=== PATIENT | male | born 1990 | race Caucasian/White ===

== ENCOUNTER 2016-07-18 10:20 | Emergency (ER) | payer BC ==
[2016-07-18 10:27] VITALS: BP 130/74; PULSE 87; RESP 16; TEMP 97.9
--- NOTE | 2016-07-18 11:01 | ED ---
Skin/Abscess/FB HPI - General Chief complaint: Skin/Abscess/Foreign Body Stated complaint: cyst Source: patient Mode of arrival: ambulatory Limitations: no limitations - History of Present Illness Initial comments: Patient is a 26-year-old male who presents for evaluation for Pilondial cyst. Past medical history as below. Patient stated that he started getting these about a year ago. It was drained in June. He was also drained a few weeks ago. He was actively draining and then eventually stopped. He was prescribed an antibiotic, Bactrim, which she did not take. He's been having increased pain. Yesterday the pain was about 7 out of 10. It was more swollen yesterday. It feels somewhat improved today. No active drainage. Less swollen. Less painful. He spoke with his primary care physician or recommended coming to the ER for evaluation for possible abscess. It is higher up and not by his rectum. He is having no issues with going to the bathroom. No blood in the stool. No mucus in his stool. Regular bowel movements. Denies any systemic signs of infection. Denies fever, chills, headache, changes in vision, URI symptoms, shortness breath, cough, chest pain, nausea, vomiting, diarrhea, change in appetite, pain or burning with urination. - Related Data Home Medications Medication Instructions Recorded Confirmed Sertraline [Zoloft] 50 mg PO DAILY 07/18/16 07/18/16 Sulfamethox-Tmp 800-160Mg [Bactrim 1 tab PO Q12HR 07/18/16 07/18/16 DS 800-160 mg] Allergies Allergy/AdvReac Type Severity Reaction Status Date / Time No Known Allergies Allergy Verified 07/18/16 10:39 Review of Systems ROS Statement: Those systems with pertinent positive or pertinent negative responses have been documented in the HPI. ROS Other: All systems not noted in ROS Statement are negative. Past Medical History Additional Past Medical History / Comment(s): ear infection piloniadal cyst History of Any Multi-Drug Resistant Organisms: None Reported Past Surgical History: No Surgical Hx Reported Past Psychological History: Anxiety Smoking Status: Current every day smoker Past Alcohol Use History: Occasional Past Drug Use History: None Reported General Exam Limitations: no limitations General appearance: alert, in no apparent distress, other (Nontoxic appearing) Head exam: Present: atraumatic, normocephalic, normal inspection Eye exam: Present: normal appearance, PERRL, EOMI. Absent: scleral icterus, conjunctival injection, periorbital swelling ENT exam: Present: normal exam, mucous membranes moist Neck exam: Present: normal inspection. Absent: tenderness, meningismus, lymphadenopathy Respiratory exam: Present: normal lung sounds bilaterally. Absent: respiratory distress, wheezes, rales, rhonchi, stridor Cardiovascular Exam: Present: regular rate, normal rhythm, normal heart sounds. Absent: systolic murmur, diastolic murmur, rubs, gallop, clicks GI/Abdominal exam: Present: soft, normal bowel sounds. Absent: distended, tenderness, guarding, rebound, rigid Rectal exam: Present: other (There is a 2 cm x 1 cm oval shaped Plon deal cyst at the top of the gluteal cleft. No perirectal involvement. No overlying cellulitis. No active drainage.) Extremities exam: Present: normal inspection, full ROM, normal capillary refill. Absent: tenderness, pedal edema, joint swelling, calf tenderness Back exam: Present: normal inspection Neurological exam: Present: alert, oriented X3, CN II-XII intact Psychiatric exam: Present: normal affect, normal mood Skin exam: Present: warm, dry, intact, normal color. Absent: rash Course Vital Signs 07/18/16 10:24 Temperature 97.9 F Pulse Rate 87 Respiratory 16 Rate Blood Pressure 130/74 O2 Sat by Pulse 99 Oximetry Procedures - Incision & Drainage Consent Obtained: verbal consent Time Out Performed?: Yes Site: buttock Anesthetic Used: lidocaine 1% I&D Cleaning Method: Alcohol Wipe Sterile Field Used?: Yes Needle Aspiration Performed?: Yes (No purulent drainage) Irrigation Performed?: No I&D Drainage Obtained: Other (No purulent drainage. No fluid withdrawn.) Culture Obtained?: No Complications: other (None) Patient Tolerated Procedure: well, no complications Medical Decision Making - Medical Decision Making 1100: Patient presents for evaluation for pilondial cyst. Has been drained twice in the past. Most recently a few weeks ago. No overlying cellulitis. I numbed the area with lidocaine and took an 18 mL syringe and with true inside the Pilondial cyst. There is no purulent drainage. I discussed this with the patient. Because there is no evidence of an abscess, will not candida the Pilondial cyst. The tissue is firm and indurated. Encouraged completing the course of Bactrim which his primary care physician prescribes. Recommended sitz baths. Tylenol/Motrin for pain control. Will refer to a general surgeon for further evaluation. I discussed signs and symptoms on when to return to emergency department for further evaluation. He voiced understanding and is comfortable with above plan. Work note provided. Disposition Clinical Impression: Pilonidal cyst Disposition: HOME SELF-CARE Condition: Good Instructions: Pilonidal Cyst (ED) Referrals: Bright Decker MD [Primary Care Provider] - 1-2 days Mona Pagan DO [Doctor of Osteopathic Medicine] - 1-2 days
== END 2016-07-18 11:07 | disposition home or self-care (01) ==
LOC: EC 10:20
DX: L05.91 Pilonidal cyst without abscess (principal); F41.9 Anxiety disorder, unspecified; F17.200 Nicotine dependence, unspecified, uncomplicated; Z79.899 Other long term (current) drug therapy; Z86.19 Personal history of other infectious and parasitic diseases
CPT/HCPCS: 10080; 99282

== ENCOUNTER 2018-05-04 07:06 | Day surgery (SDC) | payer BC ==
[2018-04-29 11:28] VITALS: BMI 27.1
[~2018-05-04 07:06] MED LIST: DEXAMETHASONE SOD PHOSPHATE 10 MG/ML 1 ML VIAL IV ONE; HEPARIN SODIUM,PORCINE 5,000 UNIT/ML 1 ML VIAL SQ ONE; HYDROmorphone 0.5 MG/0.5 ML SYRINGE IVP PRN; LACTATED RINGERS 1,000 ML IV SCH; LIDOCAINE 1% 20 ML VIAL (10MG/ML) FOR IV START INTRADERMA PRN; ONDANSETRON 4 MG/2 ML VIAL IVP ONE; SCOPOLAMINE 1.5MG/72HR PATCH TRANSDERM ONE; metroNIDAZOLE-NS PMX 500 MG in SALINE 1 100ML.BAG IVPB ONE
[2018-05-04 07:21] VITALS: TEMP 98.7
[2018-05-04] MEDS ORDERED: MIDAZOLAM 2 MG/2 ML VIAL IV ONE (07:43)
[2018-05-04] MEDS: ceFAZolin IN SWFI 2 GM/20 ML SYRINGE IVP ONE ×2 (08:00→08:25)
[2018-05-04] MEDS ORDERED: BUPIVACAIN-EPI 0.25%-1:200,000 30 ML VIAL SQ ONE ×3 (08:00→08:25)
[2018-05-04] MEDS ORDERED: PROPOFOL 10 MG/ML 20 ML VIAL IV ONE (08:04)
[2018-05-04] MEDS ORDERED: KETOROLAC 30 MG/ML 1 ML VIAL ONE (08:04)
[2018-05-04] MEDS ORDERED: MIDAZOLAM 2 MG/2 ML VIAL ONE (08:04)
[2018-05-04] MEDS ORDERED: GLYCOPYRROLATE 0.2 MG/ML 2 ML VIAL ONE (08:04)
[2018-05-04] MEDS ORDERED: fentaNYL (PF) 50 MCG/ML 2 ML AMP ONE (08:04)
[2018-05-04] MEDS ORDERED: HYDROcodone/APAP 7.5-325MG 1 EACH TAB PO ONE (09:48)
[2018-05-04 10:02] VITALS: BP 115/73; PULSE 73; RESP 16
--- NOTE | 2018-05-04 18:29 | P.GSHP ---
History of Present Illness H&P Date: 05/04/18 Chief Complaint: Chronic pilonidal cyst This a 27-year-old male who has a chronic history of pilonidal cyst with abscess. Patient presents today for excision of pilonidal cyst. Patient is mother are aware that the wound was packed postoperatively. Past Medical History Additional Past Medical History / Comment(s): pilonidal cyst History of Any Multi-Drug Resistant Organisms: None Reported Past Surgical History: No Surgical Hx Reported Past Anesthesia/Blood Transfusion Reactions: No Reported Reaction Smoking Status: Current every day smoker - Past Family History Mother Family Medical History: No Reported History Medications and Allergies Home Medications Medication Instructions Recorded Confirmed Type Multivitamins, Thera [Multivitamin 1 tab PO DAILY 04/29/18 05/04/18 History (formulary)] Docusate [Colace] 100 mg PO BID #20 capsule 05/04/18 Rx HYDROcodone/APAP 7.5-325MG [[place] 1 tab PO Q4H PRN 3 Days #18 tab 05/04/18 Rx 7.5-325] Allergies Allergy/AdvReac Type Severity Reaction Status Date / Time No Known Allergies Allergy Verified 05/04/18 07:20 Surgical - Exam Vital Signs Temp Pulse Resp BP Pulse Ox 98.7 F 88 16 133/79 98 05/04/18 07:16 05/04/18 07:16 05/04/18 07:16 05/04/18 07:16 05/04/18 07:16 - General well developed, well nourished, no distress - Eyes PERRL - ENT normal pinna - Neck no masses - Respiratory normal expansion - Abdomen Abdomen: soft, non tender - Integumentary Pilonidal cyst. Patient is evidence of a chronic pilonidal cyst with abscess. Results - Labs Microbiology - Last 24 Hours (Table) 05/04/18 02:44 Wound Culture - Preliminary Cyst 05/04/18 02:44 Anaerobic Culture - Preliminary Cyst Assessment and Plan Assessment: Pilonidal cyst. We'll perform excision. Patient's wound will be packed postoperatively.
--- NOTE | 2018-05-04 18:31 | P.OP ---
Date of Procedure: 05/04/18 Preoperative Diagnosis: Pilonidal cyst with abscess Postoperative Diagnosis: Pilonidal cyst with abscess Procedure(s) Performed: Excision of pilonidal cyst Anesthesia: MAC Surgeon: Van Garcia Estimated Blood Loss (ml): 10 Pathology: other (Pilonidal cyst) Condition: stable Disposition: PACU Description of Procedure: The patient's placed on the operative table in the prone position. He received IV sedation. His pilonidal cyst was prepped and draped usual sterile fashion. Elliptical skin incision was made and then using left cautery the pylorus cyst was excised. There was an abscess cavity entered. This was excised with the cyst. The wound was then packed with wet-to-dry Kerlix dressing. Patient top procedure well and was sent to recovery room stable condition.
== END 2018-05-04 10:59 | disposition home or self-care (01) ==
LOC: OR 07:06
PROVIDERS: ATTEND Surgery
DX: L05.91 Pilonidal cyst without abscess (principal); F17.200 Nicotine dependence, unspecified, uncomplicated; Z79.899 Other long term (current) drug therapy
CPT/HCPCS: 88304; 87070; 87205; 87075; 11770; J2250; J1644; J1100; J2405; J3010; J1885; J2704; J0690

== ENCOUNTER 2023-05-09 13:54 | Emergency (ER) | payer SELFPAY ==
--- NOTE | 2023-05-09 14:16 | ED ---
ENT HPI - General Chief complaint: Dental/Oral Stated complaint: dental infection Time Seen by Provider: 05/09/23 14:06 Source: patient, RN notes reviewed Mode of arrival: ambulatory Limitations: no limitations - History of Present Illness Initial comments: This is a 32-year-old male presents emergency department for a dental infection. States he started to develop right-sided facial swelling 3-4 days ago. This is becoming increasingly painful as well. Denies any fever/chills. He is not taking anything for management of his symptoms. He is concerned about the infection spreading. MD complaint: tooth pain - Related Data Home Medications Medication Instructions Recorded Confirmed Multivitamins, Thera [Multivitamin 1 tab PO DAILY 04/29/18 06/25/18 (formulary)] Ibuprofen [Motrin] 800 mg PO TID 05/21/18 06/25/18 Previous Rx's Medication Instructions Recorded Acetaminophen-Codeine 300-30mg 1 tab PO Q6H PRN 3 Days #12 tablet 05/09/23 [Tylenol w/codeine #3] Amoxic-Pot Clav 875-125Mg 1 tab PO Q12HR 10 Days #20 tab 05/09/23 [Augmentin 875-125] Ibuprofen [Motrin] 800 mg PO Q8H PRN #30 tab 05/09/23 Allergies Allergy/AdvReac Type Severity Reaction Status Date / Time No Known Allergies Allergy Verified 05/09/23 14:34 Review of Systems ROS Statement: Those systems with pertinent positive or pertinent negative responses have been documented in the HPI. ROS Other: All systems not noted in ROS Statement are negative. Past Medical History Additional Past Medical History / Comment(s): pilonidal cyst History of Any Multi-Drug Resistant Organisms: None Reported Past Surgical History: No Surgical Hx Reported Additional Past Surgical History / Comment(s): excision pilonidal cyst, reduction of arm fracture under anaesthesia Past Anesthesia/Blood Transfusion Reactions: No Reported Reaction Past Psychological History: Anxiety Past Alcohol Use History: Occasional Additional Past Alcohol Use History / Comment(s): smoker for 7 years "couple a day" Past Drug Use History: None Reported - Past Family History Mother Family Medical History: No Reported History Father Family Medical History: No Reported History General Exam Limitations: no limitations General appearance: alert, in no apparent distress Head exam: Present: atraumatic, normocephalic, normal inspection ENT exam: Present: other (Right sided facial swelling along the upper jaw line consistent with a dental abscess) Respiratory exam: Present: normal lung sounds bilaterally. Absent: respiratory distress, wheezes, rales, rhonchi, stridor Cardiovascular Exam: Present: regular rate, normal rhythm, normal heart sounds. Absent: systolic murmur, diastolic murmur, rubs, gallop, clicks Neurological exam: Present: alert, oriented X3, CN II-XII intact Psychiatric exam: Present: normal affect, normal mood Skin exam: Present: warm, dry, intact, normal color. Absent: rash Course Vital Signs 05/09/23 14:31 Temperature 98.4 F Pulse Rate 73 Respiratory 18 Rate Blood Pressure 126/89 O2 Sat by Pulse 98 Oximetry Medical Decision Making - Medical Decision Making This is a 32 year old male who presents to the emergency department for a dental infection. Was pt. sent in by a medical professional or institution? @ -No Did you speak to anyone other than the patient for history? @ -No Did you review nursing and triage notes? @ -Yes, and I agree, it is accurate with regards to the patient's symptoms. Were old charts reviewed? @ -No Differential Diagnosis? @ -Differential Dental Pain: Dental abscess, chipped tooth, dental carries, gaviota's angina, trigeminal neuralgia, this is not meant to be an all-inclusive list. EKG interpreted by me (3pts min.)? @ -Not obtained X-rays interpreted by me (1pt min.)? @ -Not obtained CT interpreted by me (1pt min.)? @ -Not obtained U/S interpreted by me (1pt. min.)? @ -Not obtained What testing was considered but not performed? (CT, X-rays, U/S, labs)? Why? @ -None What meds were considered but not given? Why? @ -None Did you discuss the management of the patient with other professionals? @ -No Did you reconcile home meds? @ -No Was smoking cessation discussed for >3mins.? @ -I discussed smoking cessation for greater than 3 minutes. The risk of smoking were discussed with the patient including but not limited to risks of cancer, stroke, coronary artery disease and COPD. Also discussed with patient were multiple methods of quitting smoking. Lastly we discussed the financial cost of smoking. Was critical care preformed (if so, how long)? @ -No Were there social determinants of health that impacted care today? How? (Homelessness, low income, unemployed, alcoholism, drug addiction, transportation, low edu. Level, literacy, decrease access to med. care, longterm, rehab)? @ -No Was there de-escalation of care discussed even if they declined? (Discuss DNR or withdrawal of care, Hospice)? @ -No What co-morbidities impacted this encounter? (DM, HTN, Smoking, COPD, CAD, Cancer, CVA, Hep., AIDS, mental health diagnosis, sleep apnea, morbid obesity)? @ -Smoking Was patient admitted / discharged? @ -Discharged. Physical examination consistent with developing dental abscess. Rx for Augmentin and Ibuprofen provided with dosing instructions reviewed. Advised taking this with Tylenol for additional relief. Patient discharged home in stable condition and advised to follow-up with his dentist. Undiagnosed new problem with uncertain prognosis? @ -None Drug Therapy requiring intensive monitoring for toxicity (Heparin, Nitro, Insulin, Cardizem)? @ -None Were any procedures done? @ -None Diagnosis/symptom? @ -Dental Abscess Acute, or Chronic, or Acute on Chronic? @ -Acute Uncomplicated (without systemic symptoms) or Complicated (systemic symptoms)? @ -Uncomplicated Side effects of treatment? @ -None Exacerbation, Progression, or Severe Exacerbation] @ -Not applicable Poses a threat to life or bodily function? @ -Not at this time Return precautions reviewed in depth, the patient is instructed to return to the emergency department with any new, worsening, or concerning symptoms. Patient verbalized understanding. This case was discussed in detail with the attending ED physician, Dr. Lockett. Presentation, findings, and treatment plan discussed in detail as well. Disposition Clinical Impression: Dental abscess Disposition: HOME SELF-CARE Instructions (If sedation given, give patient instructions): Dental Abscess (ED) Additional Instructions: Return to the emergency department with any new, worsening, or concerning symptoms. Take the antibiotic as prescribed for 10 days. Alternate with ibuprofen and Tylenol as needed for pain relief. Take the Tylenol #3 sparingly when your pain is the most severe and be aware that it may make you drowsy. Follow up with your primary care provider in 1-2 days. Prescriptions: Amoxic-Pot Clav 875-125Mg [Augmentin 875-125] 1 tab PO Q12HR 10 Days #20 tab Ibuprofen [Motrin] 800 mg PO Q8H PRN #30 tab PRN Reason: Pain Acetaminophen-Codeine 300-30mg [Tylenol w/codeine #3] 1 tab PO Q6H PRN 3 Days #12 tablet PRN Reason: Pain Is patient prescribed a controlled substance at d/c from ED?: Yes When asked, does pt state using other controlled substances?: No If prescribed controlled substance>3 days was MAPS reviewed?: Prescribed <3 Days Referrals: Bright Decker MD [Primary Care Provider] - 1-2 days Time of Disposition: 14:32
[2023-05-09 15:06] VITALS: BP 126/89; PULSE 73; RESP 18; TEMP 98.4
== END 2023-05-09 15:09 | disposition home or self-care (01) ==
LOC: EC 13:54
DX: K04.7 Periapical abscess without sinus (principal); F17.210 Nicotine dependence, cigarettes, uncomplicated
CPT/HCPCS: 99282; 99406